=== PATIENT | male | born 1970 | race Two or more races ===

== ENCOUNTER 2016-05-22 14:24 | Emergency (ER) | payer BC ==
[~2016-05-22] VITALS: Ht 185.4 cm; Wt 90.7 kg
[2016-05-22 14:40] VITALS: BP 159/56
[2016-05-22] MEDS ORDERED: HYDROCODONE/APAP 5/325MG 1 EACH TABLET PO STA (15:21)
[2016-05-22] MEDS ORDERED: IBUPROFEN 400 MG TABLET PO STA (15:21)
[2016-05-22] MEDS ORDERED: IBUPROFEN 400 MG TABLET ONE (15:24)
[2016-05-22] MEDS ORDERED: HYDROCODONE/APAP 5/325MG 1 EACH TABLET ONE (15:24)
--- NOTE | 2016-05-22 15:31 | NUR ---
PT REFUSES [facility] STATING "I DON'T REALLY NEED PAIN MEDICINE", REPORTS 0/10 PAIN AT REST. TOOK IBUPROFEN ORDERED. PA NOTIFIED.
== END 2016-05-22 17:19 | disposition home or self-care (01) ==
LOC: ER 14:25
DX: M25.562 Pain in left knee (principal)
CPT/HCPCS: 29505; 73564; 99284; A4606; Z7610